=== PATIENT | female | born 1995 | race Caucasian/White ===

== ENCOUNTER 2023-01-08 11:42 | Emergency (ER) | payer OTHER ==
[2023-01-08 12:07] VITALS: BP 125/82; PULSE 73; RESP 20; TEMP 99.3; BMI 27.1
== END 2023-01-08 13:58 | disposition home or self-care (01) ==
LOC: FER 11:42
DX: M25.552 Pain in left hip (principal); M70.72 Other bursitis of hip, left hip
CPT/HCPCS: 73502-TC-LT-FY; 99283-25